=== PATIENT | female | born 1990 | race African-American/Black ===

== ENCOUNTER 2017-07-27 08:18 | Emergency (ER) | payer OTHER ==
[~2017-07-27] VITALS: Ht 165.1 cm; Wt 63.5 kg
[2017-07-27 08:28] VITALS: BP 110/59
--- NOTE | 2017-07-27 08:43 | PHYS DOC ---
Past Medical History Past Medical History: Other Additional Past Medical Histor: osteoarthritis Past Surgical History: No Surgical History Alcohol Use: Occasionally Drug Use: None Adult General Chief Complaint Chief Complaint: HEAD INJURY/TRAUMA HPI HPI Patient is a 26 year old female who presents ambulatory to the ED. Patient was working at [employer] yesterday when she was bending over and about 10 empty cardboard boxes fell off the shelf above her head and struck her in the back of the head. She ambulated to the nurse's station and was given some ice and ibuprofen. She sat for a while and was planning to return to work but as she walked back to her work area, she felt worse, the head pain worsened, and she ended up going home. She drove herself home and went to bed about 9 PM last night. She slept well until she woke up at about 3 AM and then can get back to sleep until 6 AM, she did get back to sleep and slept from about 6 to 7:30. This morning she has pain in the back of her head where the boxes hit her. She also thinks that may be as she turned her head one of the boxes struck her on the upper lip because she had a "little cut that may have already healed" in that area. Patient has not taken anything for pain this morning. Review of Systems Review of Systems GI: Denies nausea or vomiting : Denies Musculoskeletal: Her neck is a bit stiff and sore Allergies Allergies Allergies Coded Allergies Type Severity Reaction Last Updated Verified No Known Drug Allergies 04/02/14 No Physical Exam Physical Exam Constitutional: Well developed, well nourished, no acute distress, non-toxic appearance. Ambulatory. Seated on the cart eating a Pop Tart out of the package. HENT: Normocephalic, bilateral external ears normal, oropharynx moist, nose normal. No evidence of facial trauma. Upper lip does not have any evidence of contusion or laceration. There is a area of tenderness on the posterior occipital scalp. That area was examined to the best of my ability considering the patient's thick hair weave overlying. No swelling, skin discoloration, no evidence of laceration or bleeding. The area is tender to palpation. Eyes: conjunctiva normal, no discharge. [] Neck: Normal range of motion, supple, no stridor. Mild generalized tenderness to palpation. No bony point tenderness. Patient states palpation of her neck musculature causes pain in the area of her occipital scalp pain. Skin: Warm, dry, no erythema, no rash. [] Extremities: No tenderness, no cyanosis, no clubbing, ROM intact, no edema. [] Neurologic: Alert and oriented X 3, normal motor function, no focal deficits noted. [] EKG EKG [] Radiology/Procedures Radiology/Procedures [] Course & Med Decision Making Course & Med Decision Making Pertinent Labs and Imaging studies reviewed. (See chart for details) 26-year-old female was struck in the back of the head by empty cardboard boxes. Probably one of the boxes struck her with the corner and caused more of a point type injury. No evidence of acute or significant injury today. She's had no concerning head injury symptoms. Patient was reassured. He instructions for plan. 2 pages of [employer] paperwork were completed. [] Dragon Disclaimer Dragon Disclaimer This electronic medical record was generated, in whole or in part, using a voice recognition dictation system. Departure Departure Impression: Primary Impression: Head injury due to trauma Additional Impression: Scalp contusion Disposition: 01 HOME, SELF-CARE Condition: STABLE Referrals: NON,STAFF (PCP) Patient Instructions: Contusion, [id number], Head Injury, Adult, [id number] Additional Instructions: Ice 15-20 minutes out of every 1-2 hours. Do this all day long today and then as needed and as you are able. Ibuprofen 800 mg every 6-8 hours as needed for pain. As long as needed, as needed. You may return to work tomorrow. Problem Qualifiers TABATHA KRISHNAN MD Jul 27, 2017 08:43
== END 2017-07-27 08:48 | disposition home or self-care (01) ==
LOC: ER 08:18
DX: S00.03XA Contusion of scalp, initial encounter (principal); W20.8XXA Other cause of strike by thrown, projected or falling object, initial encounter; Y93.89 Activity, other specified; Y92.89 Other specified places as the place of occurrence of the external cause; Y99.8 Other external cause status
CPT/HCPCS: 99281

== ENCOUNTER 2017-07-28 12:33 | Emergency (ER) | payer OTHER ==
[~2017-07-28] VITALS: Ht 165.1 cm; Wt 63.5 kg
[2017-07-28 13:30] VITALS: BP 101/59
--- NOTE | 2017-07-28 15:01 | PHYS DOC ---
Past Medical History Past Medical History: Other Additional Past Medical Histor: osteoarthritis Past Surgical History: No Surgical History Alcohol Use: None Drug Use: None Adult General Chief Complaint Chief Complaint: HEADACHE HPI HPI Patient is a 26 year old patient is in the ED complaining of a 7 out of 10 posterior head pain that began 3 days ago. Patient states she works at [employer] and was in bend position when 10 empty cardboard boxes fell off a shelf and hit her head. Patient denies any loss of consciousness. She states she was seen in the ED yesterday and was instructed to return to work she states she can not work in this condition with pain to her head. She states she went to work today and was instructed to follow-up with [facility] doctor. She states she went to the clinic today to see the [facility] doctor, she states the doctor walked into the room and she was talking on her cell phone. She states she told the doctor to hold on while she completes her "conference call". She states the doctor informed her that she has refused care and she was asked to leave the facility. She states she called 911 to bring her to the ED to be evaluated. Patient is very talkative. She states there is no way she can return to work with this pain. She is requesting something stronger for pain as well as a note to excuse from work. She was on the phone when i walked in the room talking in no distress. Review of Systems Review of Systems Constitutional: Denies fever or chills [] Eyes: Denies change in visual acuity, redness, or eye pain [] HENT: Denies nasal congestion or sore throat [] Respiratory: Denies cough or shortness of breath [] Cardiovascular: No additional information not addressed in HPI [] GI: Denies abdominal pain, nausea, vomiting, bloody stools or diarrhea [] : Denies dysuria or hematuria [] Musculoskeletal: Denies back pain or joint pain [] Integument: Denies rash or skin lesions [] Neurologic: headache, denies focal weakness or sensory changes [] All other systems were reviewed and found to be within normal limits, except as documented in this note. Allergies Allergies Allergies Coded Allergies Type Severity Reaction Last Updated Verified No Known Drug Allergies 04/02/14 No Physical Exam Physical Exam Constitutional: Well developed, well nourished, no acute distress, non-toxic appearance. [] HENT: Normocephalic, atraumatic, bilateral external ears normal, oropharynx moist, no oral exudates, nose normal. [] Eyes: PERRLA, EOMI, conjunctiva normal, no discharge. [] Neck: Normal range of motion, no tenderness, supple, no stridor. [] Cardiovascular:Heart rate regular rhythm, no murmur [] Lungs & Thorax: Bilateral breath sounds clear to auscultation [] Abdomen: Bowel sounds normal, soft, no tenderness, no masses, no pulsatile masses. [] Skin: Warm, dry, no erythema, no rash. Physical evaluation of the scalp with no signs of obvious lacerations or bruising. Exam could be slightly difficult because of patient's braided weave though this hair actually protected her scalp during the incidence Back: No tenderness, no CVA tenderness. [] Extremities: No tenderness, no cyanosis, no clubbing, ROM intact, no edema. [] Neurologic: Alert and oriented X 3, normal motor function, normal sensory function, no focal deficits noted. Cranial nerves II through XII intact. Psychologic: Affect normal, judgement normal, mood normal. [] Current Patient Data Vital Signs Vital Signs Date Time Temp Pulse Resp B/P (MAP) Pulse Ox O2 Delivery O2 Flow Rate FiO2 07/28/17 13:30 98.8 64 16 95 Room Air 98.8 EKG EKG [] Radiology/Procedures Radiology/Procedures [] Course & Med Decision Making Course & Med Decision Making Pertinent Labs and Imaging studies reviewed. (See chart for details) Please see history of present illness. This is patient's second visit in 2 days for head contusion that she sustained 3 days ago when 10 empty cardboard boxes fell off a shelf and hit her head at [employer]. Patient was seen in the ED yesterday and was discharged with instructions to return to work. She presents today stating she went to the workman comp doctor, she was talking on the cell phone and the doctor asked her to stop talking, she states she continued to talk and the doctor informed her she has refused care. Off note patient was on her cell phone when I walked into her room. Patient is stating she cannot go to work in this condition. I have evaluated patient I do not see why she cannot return to work today. Informed patient people do work in pain. Recommended Tylenol and Motrin. She is also asking for CT of the head, informed patient I do not see any indication for CT of the head and even gave her side effects. Patient is very talkative basically insisting on getting a note to excuse her from work. I have talked to patient at length. Informed patient I feel she should return to work right now. Informed her she should also go back to the [facility] doctor apologize and seek care. Informed her she can take Tylenol and or Motrin for pain. She was she was insisting on getting something stronger. Informed patient we do not prescribe strong pain medication for conditions that are minor. Recommended ice to the affected area. Recommended she follows up with her own doctor or one of the doctors provided Dragon Disclaimer Dragon Disclaimer This electronic medical record was generated, in whole or in part, using a voice recognition dictation system. Departure Departure Impression: Primary Impression: Contusion of head Disposition: 01 HOME, SELF-CARE Condition: STABLE Referrals: NO PCP (PCP) follow up with the [facility] doctor today and a primary care doctor from the list provided Patient Instructions: Contusion, [id number] Additional Instructions: You were seen for a head contusion you sustained 3 days ago. You can return to work today. A lot of human beings do work in the pain and learn to manage and adjust their work skills, you are very young we would like you to continue working and enjoy normal life routine. Please go to the [facility] doctor, apologize and request to be seen in a kind way. Please take Tylenol 500 mg every 6 hours as needed for pain as well as ibuprofen 600-800 mg every 8 hours as needed for pain. Problem Qualifiers Primary Impression: Contusion of head Encounter type: subsequent encounter Contusion of head detail: scalp Qualified Codes: S00.03XD - Contusion of scalp, subsequent encounter ZHEN NAVA DRIER AND EVAPORATOR OPERATOR Jul 28, 2017 15:01
== END 2017-07-28 15:17 | disposition home or self-care (01) ==
LOC: ER 12:33
DX: S00.03XD Contusion of scalp, subsequent encounter (principal); W20.8XXD Other cause of strike by thrown, projected or falling object, subsequent encounter
CPT/HCPCS: 99281; 99283